=== PATIENT | male | born 1990 | race Caucasian/White ===

== ENCOUNTER 2018-09-06 02:39 | Emergency (ER) | payer MEDICARE, OTHER ==
[~2018-09-06] VITALS: Ht 170.2 cm; Wt 75.0 kg
[2018-09-06] MEDS ORDERED: IBUPROFEN 800MG TABLET PO ONE (03:30)
[2018-09-06 05:04] VITALS: BP 135/73
== END 2018-09-06 05:04 | disposition home or self-care (01) ==
LOC: ER 02:39
DX: S00.03XA Contusion of scalp, initial encounter (principal); M25.572 Pain in left ankle and joints of left foot; X58.XXXA Exposure to other specified factors, initial encounter; Y93.89 Activity, other specified; Y92.89 Other specified places as the place of occurrence of the external cause; Y99.8 Other external cause status; Z98.890 Other specified postprocedural states
CPT/HCPCS: 73610; 99284